=== PATIENT | female | born 1945 | race Caucasian/White ===

== ENCOUNTER 2017-11-26 12:50 | Inpatient (IN) | payer MEDICARE ==
[~2017-11-26] VITALS: Ht 160 cm; Wt 40.3 kg
[2017-11-26] VITALS (13 sets, daily range): BP systolic 98–129; BP diastolic 54–73; PULSE 86–132; RESP 15–20; TEMP 98–98.1; O2SAT 90–99
[~2017-11-26 12:50] MED LIST: CARD120T4 PO; HYDR-3533 PO; IPRAAER IN; LISI2.5T3 PO; METO25 PO; PLAV75TA PO; ZITH250T PO; ZOFR4TAB3 SL
[2017-11-26] MEDS ORDERED: SODIUM CHLORID 0.9% 500 ML INJ 500 ML IV ONE (13:30)
[2017-11-26] MEDS ORDERED: DILTIAZEM HCL 25 MG/5 ML VIAL IV ONE (13:30)
[2017-11-26] MEDS ORDERED: RESP: ALBUTEROL 2.5 MG/IPRATROPIUM 0.5 MG NEB (SCH) INH ONE (13:30)
--- NOTE | 2017-11-26 13:40 | PD ---
HPI Chief Complaint: Abnormal Results Time Seen by Provider: 13:15 Travel History International Travel<30 days: No Contact w/Intl Traveler<30days: No Traveled to known affect area: No History of Present Illness HPI Patient is a 72-year-old female presenting to the emergency department due to abnormal labs. Patient's INR is 18 per her report. Additionally she was going to her doctor's this morning because she has been having cold symptoms for the last 2 weeks, her symptoms have progressively gotten worse. Patient states that she feel short of breath, she has a nonproductive cough. She states that her ribs are sore from coughing. Daughter is at bedside states that she had a fever initially, fevers appear subjective in nature. Patient has had decreased appetite, she denies any nausea, vomiting, abdominal pain, chest pain. He has a history of COPD and has been using Advair but does not used nebulizer treatments. Patient denies any nasal congestion, postnasal drip, headaches. Symptom onset was gradual, symptom severity is moderate, there are no alleviating factors. Patient reports that she is on Coumadin due to a valve replacement and atrial fibrillation. PFSH Past Medical History Hx Anticoagulant Therapy: Yes (Coumadin) Atrial Fibrillation: Yes COPD: Yes Diminished Hearing: No Hypertension: Yes Respiratory: Yes (COPD) Past Surgical History Cardiac Surgery: Yes (mitral and aortic valve replacement (mechanical)) Tonsillectomy: Yes Social History Alcohol Use: No Tobacco Use: Yes (1/2 PPD) Substance Use: No Allergies-Medications (Allergen,Severity, Reaction): Coded Allergies: No Known Allergies (Verified Adverse Reaction, Unknown, 11/26/17) Reported Meds & Prescriptions Reported Meds & Active Scripts Active Reported Ferosul (Ferrous Sulfate) 325 Mg (65 Mg Iron) Tablet 0.5 Tab PO DAILY [place] (Hydrocodone-Acetaminophen) 5 Mg-325 Mg Tab 1 Tab PO Q4H PRN Diltiazem (Diltiazem HCl) 120 Mg Tab 120 Mg PO DAILY Coumadin (Warfarin) 5 Mg Tab 7.5 Mg PO DAILY Potassium Chloride ER (Potassium Chloride) 20 Meq Tab 20 Meq PO DAILY While on Torsemide Metoprolol Succinate ER 24 HR (Metoprolol Succinate) 25 Mg Tab 25 Mg PO DAILY Torsemide 20 Mg Tab 10 Mg PO DAILY Lipitor (Atorvastatin Calcium) 20 Mg Tab 20 Mg PO HS Advair Diskus Inh (Fluticasone-Salmeterol Inh) 250-50 Mcg/Blist Aer 1 Puff INH BID Rinse mouth after use. Review of Systems Except as stated in HPI: all other systems reviewed are Neg General / Constitutional: Positive: Weight Loss, No: Fever, Chills HENT: No: Headaches Cardiovascular: No: Chest Pain or Discomfort Respiratory: Positive: Cough, Shortness of Breath, Wheezing, Orthopnea, Pleuritic Pain Gastrointestinal: No: Nausea, Abdominal Pain Musculoskeletal: No: Myalgias Neurologic: No: Weakness, Dizziness, Focal Abnormalities Physical Exam Narrative GENERAL: Cachectic, well-developed, alert elderly female. SKIN: Warm and dry. HEAD: Atraumatic. Normocephalic. EYES: Pupils equal and round. No scleral icterus. No injection or drainage. ENT: No nasal bleeding or discharge. Mucous membranes pink and moist. NECK: Trachea midline. No JVD. CARDIOVASCULAR: Irregularly irregular, tachycardic, 2/6 systolic murmur RESPIRATORY: Pursed lip breathing, tachypneic, diminished in bases, expiratory wheezes noted. GASTROINTESTINAL: Abdomen soft, non-tender, nondistended. Hepatic and splenic margins not palpable. MUSCULOSKELETAL: Extremities without clubbing, cyanosis, or edema. No obvious deformities. NEUROLOGICAL: Awake and alert. No obvious cranial nerve deficits. Motor grossly within normal limits. Five out of 5 muscle strength in the arms and legs. Normal speech. PSYCHIATRIC: Appropriate mood and affect; insight and judgment normal. Data Data Last Documented VS Vital Signs Date Time Temp Pulse Resp B/P (MAP) Pulse Ox O2 Delivery O2 Flow Rate FiO2 11/26/17 15:14 110 15 103/60 (74) 96 Nasal Cannula 2.00 11/26/17 13:00 98.0 Orders Orders Complete Blood Count With Diff (11/26/17 13:21) Comprehensive Metabolic Panel (11/26/17 13:21) Act Partial Throm Time (Ptt) (11/26/17 13:21) Prothrombin Time / Inr (Pt) (11/26/17 13:21) Magnesium (Mg) (11/26/17 13:21) Urinalysis - C+S If Indicated (11/26/17 13:21) Influenzae A/B Antigen (11/26/17 13:21) Iv Access Insert/Monitor (11/26/17 13:21) Ecg Monitoring (11/26/17 13:21) Oximetry (11/26/17 13:21) Oxygen Administration (11/26/17 13:21) Chest, Single Ap (11/26/17 13:21) Sodium Chloride 0.9% Flush (Ns Flush) (11/26/17 13:30) Albuterol-Ipratropium Neb (Duoneb Neb) (11/26/17 13:30) Diltiazem Inj (Cardizem Inj) (11/26/17 13:30) Type And Screen (11/26/17 13:22) Sodium Chlorid 0.9% 500 Ml Inj (Ns 500 M (11/26/17 13:30) Electrocardiogram (11/26/17 13:14) Azithromycin Inj (Zithromax Inj) (11/26/17 15:00) Methylprednisolone So Succ Inj (Solumedr (11/26/17 15:00) Vital Signs (Adult) Q15MX4,Q4H (11/26/17 15:26) Reinforcing Steel Placer / Telemetry YUDI.Q8H (11/26/17 15:26) Cardiac Rhythm YUDI.Q8H (11/26/17 15:26) Notify Dr: Other (11/26/17 15:26) Diltiazem Inj (Cardizem Inj) (11/26/17 15:30) Admit Order (Ed Use Only) (11/26/17 15:26) Labs Laboratory Tests Test 11/26/17 13:30 White Blood Count 7.2 TH/MM3 Red Blood Count 4.45 MIL/MM3 Hemoglobin 13.2 GM/DL Hematocrit 39.9 % Mean Corpuscular Volume 89.7 FL Mean Corpuscular Hemoglobin 29.6 PG Mean Corpuscular Hemoglobin Concent 32.9 % Red Cell Distribution Width 14.6 % Platelet Count 316 TH/MM3 Mean Platelet Volume 7.8 FL Neutrophils (%) (Auto) 80.9 % Lymphocytes (%) (Auto) 10.3 % Monocytes (%) (Auto) 8.4 % Eosinophils (%) (Auto) 0.1 % Basophils (%) (Auto) 0.3 % Neutrophils # (Auto) 5.8 TH/MM3 Lymphocytes # (Auto) 0.7 TH/MM3 Monocytes # (Auto) 0.6 TH/MM3 Eosinophils # (Auto) 0.0 TH/MM3 Basophils # (Auto) 0.0 TH/MM3 CBC Comment DIFF FINAL Differential Comment Prothrombin Time 139.9 SEC Prothromb Time International Ratio 14.1 RATIO Activated Partial Thromboplast Time 92.7 SEC Blood Urea Nitrogen 18 MG/DL Creatinine 0.55 MG/DL Random Glucose 91 MG/DL Total Protein 7.2 GM/DL Albumin 2.8 GM/DL Calcium Level 9.4 MG/DL Magnesium Level 2.0 MG/DL Alkaline Phosphatase 74 U/L Aspartate Amino Transf (AST/SGOT) 38 U/L Alanine Aminotransferase (ALT/SGPT) 26 U/L Total Bilirubin 0.8 MG/DL Sodium Level 138 MEQ/L Potassium Level 4.7 MEQ/L Chloride Level 95 MEQ/L Carbon Dioxide Level 40.7 MEQ/L Anion Gap 2 MEQ/L Estimat Glomerular Filtration Rate 109 ML/MIN MDM Medical Decision Making Medical Screen Exam Complete: Yes Emergency Medical Condition: Yes Medical Record Reviewed: Yes Interpretation(s) Vital Signs Date Time Temp Pulse Resp B/P (MAP) Pulse Ox O2 Delivery O2 Flow Rate FiO2 11/26/17 15:14 110 15 103/60 (74) 96 Nasal Cannula 2.00 11/26/17 13:54 93 2.00 11/26/17 13:54 97 20 129/62 (84) 95 Nasal Cannula 2.00 11/26/17 13:13 20 100 Nasal Cannula 2.00 11/26/17 13:09 132 16 129/62 (84) 98 11/26/17 13:00 98.0 118 16 98/68 (78) 90 Room Air Last Impressions Chest X-Ray 11/26/17 1321 Signed Impressions: Service Date/Time: Sunday, November 26, 2017 13:38 - CONCLUSION: Minimal parenchymal changes left base without significant failure. Joni Hough MD FACR Laboratory Tests Test 11/26/17 13:30 White Blood Count 7.2 TH/MM3 Red Blood Count 4.45 MIL/MM3 Hemoglobin 13.2 GM/DL Hematocrit 39.9 % Mean Corpuscular Volume 89.7 FL Mean Corpuscular Hemoglobin 29.6 PG Mean Corpuscular Hemoglobin Concent 32.9 % Red Cell Distribution Width 14.6 % Platelet Count 316 TH/MM3 Mean Platelet Volume 7.8 FL Neutrophils (%) (Auto) 80.9 % Lymphocytes (%) (Auto) 10.3 % Monocytes (%) (Auto) 8.4 % Eosinophils (%) (Auto) 0.1 % Basophils (%) (Auto) 0.3 % Neutrophils # (Auto) 5.8 TH/MM3 Lymphocytes # (Auto) 0.7 TH/MM3 Monocytes # (Auto) 0.6 TH/MM3 Eosinophils # (Auto) 0.0 TH/MM3 Basophils # (Auto) 0.0 TH/MM3 CBC Comment DIFF FINAL Differential Comment Prothrombin Time 139.9 SEC Prothromb Time International Ratio 14.1 RATIO Activated Partial Thromboplast Time 92.7 SEC Blood Urea Nitrogen 18 MG/DL Creatinine 0.55 MG/DL Random Glucose 91 MG/DL Total Protein 7.2 GM/DL Albumin 2.8 GM/DL Calcium Level 9.4 MG/DL Magnesium Level 2.0 MG/DL Alkaline Phosphatase 74 U/L Aspartate Amino Transf (AST/SGOT) 38 U/L Alanine Aminotransferase (ALT/SGPT) 26 U/L Total Bilirubin 0.8 MG/DL Sodium Level 138 MEQ/L Potassium Level 4.7 MEQ/L Chloride Level 95 MEQ/L Carbon Dioxide Level 40.7 MEQ/L Anion Gap 2 MEQ/L Estimat Glomerular Filtration Rate 109 ML/MIN Vital Signs Date Time Temp Pulse Resp B/P (MAP) Pulse Ox O2 Delivery O2 Flow Rate FiO2 11/26/17 13:13 20 100 Nasal Cannula 2.00 11/26/17 13:09 132 16 129/62 (84) 98 11/26/17 13:00 98.0 118 16 98/68 (78) 90 Room Air Differential Diagnosis COPD exacerbation versus metabolic abnormality versus pneumonia versus coagulopathy versus cardiac arrhythmia Narrative Course Patient is a 72-year-old female presenting for abnormal labs as well as increasing shortness of breath for the last 2 weeks. Patient is tachycardic and tachypneic on arrival. Initial EKG shows atrial fibrillation with rapid ventricular response. Patient was given 10 mg IV Cardizem 1 dose. Labs and imaging ordered and pending. Chest x-ray shows minimal parenchymal changes in the left base without significant failure, cardiomegaly. CBC is unremarkable, chemistry with elevated carbon dioxide of 40.7. Coags with INR of 14.1, APTT 32.7. Discussed findings with my attending physician, will not correct supratherapeutic INR at this time. There is no evidence of bleeding, patient's hemoglobin is stable. [facility] paged for admission. Azithromycin and Solu-Medrol ordered. Dr. Haddad accepted admission, he requested patient be placed on Cardizem drip. Orders placed. Diagnosis Primary Impression: COPD exacerbation Additional Impressions: Supratherapeutic INR Pneumonia Qualified Codes: J18.1 - Lobar pneumonia, unspecified organism Atrial fibrillation with rapid ventricular response Admitting Information Admitting Physician Requests: Admit Condition: Stable Marsha Cisneros Nov 26, 2017 13:40
--- NOTE | 2017-11-26 13:51 | RADRPT ---
EXAM DATE/TIME: 11/26/2017 13:38 [place] COMPARISON: No previous studies available for comparison. INDICATIONS : Shortness of breath, cough, and lightheaded. MEDICAL HISTORY : Chronic obstructive pulmonary disease. SURGICAL HISTORY : Mitral valve replacement. Aortic valve replacement. ENCOUNTER: Initial ACUITY: 2 days PAIN SCORE: 0/10 LOCATION: Bilateral chest FINDINGS: Sternal wires from previous cardiac surgery and valve placement are evident. Minimal bibasilar paren chymal changes are evident worse on the right. The heart is minimally enlarged. There is no signifi cant failure.. CONCLUSION: Minimal parenchymal changes left base without significant failure. Joni Hough MD FACR on November 26, 2017 at 13:49 Board Certified Radiologist. This report was verified electronically.
[2017-11-26 14:01] LABS: AUTOMATED NEUTROPHIL # 5.8 TH/MM3 (1.8-7.7); BASOPHIL % 0.3 % (0.0-2.0); EOSINOPHIL % 0.1 % (0.0-4.0); HEMATOCRIT 39.9 % (35.0-46.0); HEMOGLOBIN 13.2 GM/DL (11.6-15.3); LYMPH % 10.3 % (9.0-44.0); LYMPHOCYTE # 0.7 TH/MM3 (1.0-4.8); MEAN CELL VOLUME 89.7 FL (80.0-100.0); MEAN CORPUSCULAR HEMOGLOBIN 29.6 PG (27.0-34.0); MEAN CORPUSCULAR HGB CONC 32.9 % (32.0-36.0); MEAN PLATELET VOLUME 7.8 FL (7.0-11.0); MONO % 8.4 % (0.0-8.0); MONOCYTE # 0.6 TH/MM3 (0-0.9); NEUT % 80.9 % (16.0-70.0); PLATELET COUNT 316 TH/MM3 (150-450); RED BLOOD COUNT 4.45 MIL/MM3 (4.00-5.30); RED CELL DISTRIBUTION WIDTH 14.6 % (11.6-17.2); WHITE BLOOD COUNT 7.2 TH/MM3 (4.0-11.0)
[2017-11-26 14:16] LABS: ALKALINE PHOSPHATASE 74 U/L (45-117); TOTAL BILIRUBIN ADULT 0.8 MG/DL (0.2-1.0); TOTAL PROTEIN 7.2 GM/DL (6.4-8.2)
[2017-11-26 14:19] LABS: ALBUMIN 2.8 GM/DL (3.4-5.0); ALT (GPT) 26 U/L (10-53); AST (GOT) 38 U/L (15-37); BICARBONATE 40.7 MEQ/L (21.0-32.0); BLOOD UREA NITROGEN 18 MG/DL (7-18); CALCIUM 9.4 MG/DL (8.5-10.1); CHLORIDE 95 MEQ/L (98-107); CREATININE 0.55 MG/DL (0.50-1.00); GLOMERULAR FILTRATION RATE 109 ML/MIN (>89); GLUCOSE,RANDOM 91 MG/DL (74-106); SODIUM (NA) 138 MEQ/L (136-145)
[2017-11-26 14:31] LABS: PROTHROMBIN TIME - PATIENT 139.9 SEC (9.8-11.6)
[2017-11-26] MEDS ORDERED: NORC5TAB PO (14:34)
[2017-11-26] MEDS ORDERED: ADVA250A INH (14:34)
[2017-11-26] MEDS ORDERED: COUM5TAB PO (14:34)
[2017-11-26] MEDS ORDERED: LIPI20TA PO (14:34)
[2017-11-26] MEDS ORDERED: [UNRECOGNIZED DRUG - CODE] PO (14:34)
[2017-11-26] MEDS ORDERED: METO1TAB42 PO (14:34)
[2017-11-26] MEDS ORDERED: POTA-163 PO (14:34)
[2017-11-26] MEDS ORDERED: DILT120T PO (14:34)
[2017-11-26] MEDS ORDERED: TORS20TA PO (14:34)
[2017-11-26 14:35] LABS: INTERNATIONAL NORMALIZED RATIO 14.1 RATIO
[2017-11-26] MEDS ORDERED: FERR325T20 PO (14:35)
[2017-11-26] MEDS ORDERED: AZITHROMYCIN INJ 500 MG in SODIUM CHLOR 0.9% 250 ML INJ 250 ML IV ONE (15:00)
[2017-11-26] MEDS ORDERED: methylPREDNISolone SOD SUCC 125 MG/2 ML VIAL IV PUSH ONE (15:00)
[2017-11-26] MEDS: SODIUM CHLORIDE 0.9% FLUSH 10 ML FLUSH IVF PRN (15:10)
[2017-11-26] MEDS: DILTIAZEM INJ 125 MG in SODIUM CHLORIDE 0.9% INJ 100 ML IV PRN (16:01)
[2017-11-26] MEDS ORDERED: MAGNESIUM HYDROXIDE SUSP 30 ML CUP PO PRN (16:45)
[2017-11-26] MEDS ORDERED: ONDANSETRON HCL 4 MG/2 ML VIAL IVP PRN (16:45)
[2017-11-26] MEDS ORDERED: MORPHINE SULFATE 4 MG/ML INJ IV PUSH PRN (16:45)
[2017-11-26] MEDS ORDERED: ACETAMINOPHEN/HYDROcodone 325 MG/7.5 MG TAB PO PRN (16:45)
[2017-11-26] MEDS ORDERED: ACETAMINOPHEN/HYDROcodone 325 MG/5 MG TAB PO PRN (16:45)
[2017-11-26] MEDS ORDERED: NALOXONE HCL 0.4 MG/ML AMP IV PUSH PRN (16:45)
[2017-11-26] MEDS ORDERED: ACETAMINOPHEN 325 MG TAB PO PRN (16:45)
[2017-11-26] MEDS: cefTRIAXone INJ 1,000 MG in SODIUM CHLORIDE 0.9% INJ 100 ML IV SCH (17:54)
--- NOTE | 2017-11-26 18:29 | HHI.HP ---
[facility] Joni Pereyra, DO Admission Diagnosis afib w/ rvr, supratherapeutic INR, pna Diagnoses: Chief Complaint: My INR is high Travel History International Travel<30 Days: No Contact w/Intl Traveler <30 Da: No Traveled to Known Affected Are: No History of Present Illness 72 years old female with history of mild valvular prosthesis she is on Coumadin , she got a call from her cardiology office to go to ER due to high INR 18. in ED she also complaining of intense cough for a few days ago along with phlegm which is dark brown, short of breath, no fever no chest pain or discomfort, no palpitation or diarrhea, no previous antibiotic, patient smokes 5 cigarettes a day she does not do alcohol. She is not on oxygen at home. Also in ED she was found to have A. fib which seems to be new for her Review of Systems All systems reviewed and was positive for what is mentioned in history of present illness otherwise negative Past Family Social History Past Medical History No history of heart disease, aortic and mitral valve replacement, hyperlipidemia Past Surgical History History of mitral and aortic valve replacement, Allergies: Coded Allergies: No Known Allergies (Verified Allergy, Unknown, 11/26/17) Family History Father had dementia, brother had coronary artery disease with stenting Social History She smoked 5 cigarettes a day no alcohol or illicit drug abuse Physical Exam Vital Signs Vital Signs Date Time Temp Pulse Resp B/P (MAP) Pulse Ox O2 Delivery O2 Flow Rate FiO2 11/26/17 17:37 96 16 101/62 (75) 96 Nasal Cannula 2.00 11/26/17 16:45 86 105/64 (78) 11/26/17 16:01 107 105/58 11/26/17 15:14 110 15 103/60 (74) 96 Nasal Cannula 2.00 11/26/17 13:54 93 2.00 11/26/17 13:54 97 20 129/62 (84) 95 Nasal Cannula 2.00 11/26/17 13:13 20 100 Nasal Cannula 2.00 11/26/17 13:09 132 16 129/62 (84) 98 11/26/17 13:00 98.0 118 16 98/68 (78) 90 Room Air Physical Exam GENERAL: Frail 59 years old female who looks cachectic in no apparent distress. SKIN: No rashes, warm and dry HEAD: Atraumatic. Normocephalic. EYES: Pupils equal round and reactive. Extraocular motions intact. No scleral icterus. ENT: Nose without bleeding, or drainage, Airway patent. NECK: Trachea midline. Supple CARDIOVASCULAR: R irregularly irregular without murmurs, gallops, or rubs. RESPIRATORY: Left basilar crackles GASTROINTESTINAL: Abdomen soft, non-tender, nondistended. Positive bowel sounds MUSCULOSKELETAL: Extremities without clubbing, cyanosis, or edema. Pedal pulses appreciated NEUROLOGICAL: Awake and alert. Moves all extremity. Normal speech.no focal neurological deficit Laboratory Laboratory Tests Test 11/26/17 13:30 White Blood Count 7.2 Red Blood Count 4.45 Hemoglobin 13.2 Hematocrit 39.9 Mean Corpuscular Volume 89.7 Mean Corpuscular Hemoglobin 29.6 Mean Corpuscular Hemoglobin Concent 32.9 Red Cell Distribution Width 14.6 Platelet Count 316 Mean Platelet Volume 7.8 Neutrophils (%) (Auto) 80.9 Lymphocytes (%) (Auto) 10.3 Monocytes (%) (Auto) 8.4 Eosinophils (%) (Auto) 0.1 Basophils (%) (Auto) 0.3 Neutrophils # (Auto) 5.8 Lymphocytes # (Auto) 0.7 Monocytes # (Auto) 0.6 Eosinophils # (Auto) 0.0 Basophils # (Auto) 0.0 CBC Comment DIFF FINAL Differential Comment Prothrombin Time 139.9 Prothromb Time International Ratio 14.1 Activated Partial Thromboplast Time 92.7 Blood Urea Nitrogen 18 Creatinine 0.55 Random Glucose 91 Total Protein 7.2 Albumin 2.8 Calcium Level 9.4 Magnesium Level 2.0 Alkaline Phosphatase 74 Aspartate Amino Transf (AST/SGOT) 38 Alanine Aminotransferase (ALT/SGPT) 26 Total Bilirubin 0.8 Sodium Level 138 Potassium Level 4.7 Chloride Level 95 Carbon Dioxide Level 40.7 Anion Gap 2 Estimat Glomerular Filtration Rate 109 Date/Time Source Procedure Growth Status 11/26/17 13:30 Nasal Washing Influenza Types A,B Antigen (KVNG) - Final NEGATIVE FOR FLU A AND B ANTIGEN.... Complete Result Diagram: 11/26/17 1330 11/26/17 1330 Imaging Last Impressions Chest X-Ray 11/26/17 1321 Signed Impressions: Service Date/Time: Sunday, November 26, 2017 13:38 - CONCLUSION: Minimal parenchymal changes left base without significant failure. Joni Hough MD FACR [place]an VTE Risk Assessment Caprini VTE Risk Assessment: Mod/High Risk (score >= 2) Caprini Risk Assessment Model Point Value = 1 Point Value = 2 Point Value = 3 Point Value = 5 Age 41-60 Minor surgery BMI > 25 kg/m2 Swollen legs Varicose veins or History of unexplained or recurrent spontaneous Oral contraceptives or hormone replacement Sepsis (< 1 month) Serious lung disease, including pneumonia (< 1 month) Abnormal pulmonary function Acute myocardial infarction Congestive heart failure (< 1 month) History of inflammatory bowel disease Medical patient at bed rest Age 61-74 Arthroscopic surgery Major open surgery (> 45 min) Laparoscopic surgery (> 45 min) Malignancy Confined to bed (> 72 hours) Immobilizing plaster cast Central venous access Age >= 75 History of VTE Family history of VTE Factor V Leiden Prothrombin [id number] Lupus anticoagulant Anticardiolipin antibodies Elevated serum homocysteine Heparin-induced thrombocytopenia Other congenital or acquired thrombophilia Stroke (< 1 month) Elective arthroplasty Hip, pelvis, or leg fracture Acute spinal cord injury (< 1 month) Prophylaxis Regimen Total Risk Factor Score Risk Level Prophylaxis Regimen 0-1 Low Early ambulation 2 Moderate Order ONE of the following: *Sequential Compression Device (SCD) *Heparin 5000 units SQ BID 3-4 Higher Order ONE of the following medications: *Heparin 5000 units SQ TID *Enoxaparin/Lovenox 40 mg SQ daily (WT < 150 kg, CrCl > 30 mL/min) *Enoxaparin/Lovenox 30 mg SQ daily (WT < 150 kg, CrCl > 10-29 mL/min) *Enoxaparin/Lovenox 30 mg SQ BID (WT < 150 kg, CrCl > 30 mL/min) AND/OR *Sequential Compression Device (SCD) 5 or more Highest Order ONE of the following medications: *Heparin 5000 units SQ TID (Preferred with Epidurals) *Enoxaparin/Lovenox 40 mg SQ daily (WT < 150 kg, CrCl > 30 mL/min) *Enoxaparin/Lovenox 30 mg SQ daily (WT < 150 kg, CrCl > 10-29 mL/min) *Enoxaparin/Lovenox 30 mg SQ BID (WT < 150 kg, CrCl > 30 mL/min) AND *Sequential Compression Device (SCD) Assessment and Plan Assessment and Plan 72 years old female admitted with Severe Coumadin toxicity with INR of 18 Acute left lower lobe CAP, with hypoxia, cough phlegm production and increased neutrophil New onset A. 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 and monitor closely for any signs of bleeding Rocephin and Zithromax for pneumonia 02, DuoNeb Cardizem drip per protocol 2D echo, consult cardiology Healthy heart diet Bedrest with bathroom privileges for now, fall precaution Discussed Condition With Patient and her best friend Physician Certification 2 Midnight Certification Type: Admission for Inpatient Services Order for Inpatient Services The services are ordered in accordance with Medicare regulations or non- Medicare payer requirements, as applicable. In the case of services not specified as inpatient-only, they are appropriately provided as inpatient services in accordance with the 2-midnight benchmark. Estimated LOS (days): 3 days is the estimated time the patient will need to remain in the hospital, assuming treatment plan goals are met and no additional complications. Post-Hospital Plan: Not yet determined Letha Haddad MD Nov 26, 2017 18:29
[2017-11-26 21:39] LABS: BILIRUBIN, URINE NEG (NEG); BLOOD, URINE NEG (NEG); GLUCOSE,URINE NEG (NEG); HYALINE CAST, URINE 3 /lpf (RARE); KETONE, URINE 10 mg/dL (NEG); NITRITE,URINE POS (NEG); SQUAMOUS EPITHELIAL CELL URINE <1 /hpf (0-5); URINE COLOR YELLOW (YELLW/STRAW); URINE LEUKOCYTE ESTERASE SMALL (NEG)
[2017-11-26] MEDS: DOCUSATE SODIUM 50 MG/SENNA 8.6 MG TAB PO SCH (22:50)
[2017-11-27] VITALS (31 sets, daily range): BP systolic 101–110; BP diastolic 55–70; PULSE 82–116; RESP 18–20; TEMP 97.3–98; O2SAT 93–100
[2017-11-27 04:56] LABS: AUTOMATED NEUTROPHIL # 3.7 TH/MM3 (1.8-7.7); BASOPHIL % 0.1 % (0.0-2.0); HEMATOCRIT 36.7 % (35.0-46.0); HEMOGLOBIN 12.2 GM/DL (11.6-15.3); LYMPH % 8.4 % (9.0-44.0); LYMPHOCYTE # 0.3 TH/MM3 (1.0-4.8); MEAN CORPUSCULAR HEMOGLOBIN 29.8 PG (27.0-34.0); MEAN CORPUSCULAR HGB CONC 33.2 % (32.0-36.0); MEAN PLATELET VOLUME 7.6 FL (7.0-11.0); MONO % 1.9 % (0.0-8.0); MONOCYTE # 0.1 TH/MM3 (0-0.9); NEUT % 89.6 % (16.0-70.0); PLATELET COUNT 278 TH/MM3 (150-450); RED BLOOD COUNT 4.08 MIL/MM3 (4.00-5.30); RED CELL DISTRIBUTION WIDTH 14.5 % (11.6-17.2); WHITE BLOOD COUNT 4.1 TH/MM3 (4.0-11.0)
[2017-11-27 05:13] LABS: PROTHROMBIN TIME - PATIENT 95.1 SEC (9.8-11.6)
[2017-11-27 05:21] LABS: CALCIUM 8.8 MG/DL (8.5-10.1); CREATININE 0.5 MG/DL (0.50-1.00)
[2017-11-27 05:31] LABS: INTERNATIONAL NORMALIZED RATIO 9.5 RATIO
[2017-11-27] MEDS: DOCUSATE SODIUM 50 MG/SENNA 8.6 MG TAB PO SCH ×2 (09:00→21:00)
[2017-11-27] MEDS: DILTIAZEM INJ 125 MG in SODIUM CHLORIDE 0.9% INJ 100 ML IV PRN (12:31)
[2017-11-27] MEDS ORDERED: RESP: ALBUTEROL 2.5 MG/IPRATROPIUM 0.5 MG NEB (PRN) NEB (13:00)
[2017-11-27] MEDS ORDERED: GLUCAGON 1 MG/ML VIAL OTHER PRN (13:00)
[2017-11-27] MEDS ORDERED: DEXTROSE 50% IN WATER 50 ML VIAL(D50) IV PUSH PRN (13:00)
[2017-11-27] MEDS: DILTIAZEM HCL 30 MG TAB PO SCH ×3 (13:33→23:32)
--- NOTE | 2017-11-27 14:51 | EKG ---
Date Performed: 11/26/2017 Time Performed: 13:14:22 PTAGE: 72 years EKG: ATRIAL FIBRILLATION WITH RAPID VENTRICULAR RESPONSE WITH ABERRANT CONDUCTION OR VENTRICULAR PREMATURE COMPLEXES MODERATE VOLTAGE CRITERIA FOR LVH, CONSIDER NORMAL VARIANT ST DEVIATION AND MODE RATE T-WAVE ABNORMALITY, CONSIDER ANTERIOR ISCHEMIA ABNORMAL ECG Since PREVIOUS TRACING , no significant change noted PREVIOUS TRACIN08/12/2001 04.07.07 DOCTOR: Xander Cook Interpretating Date/Time 11/27/2017 14:49:26
[2017-11-27] MEDS: AZITHROMYCIN INJ 500 MG in SODIUM CHLOR 0.9% 250 ML INJ 250 ML IV SCH (15:51)
[2017-11-27] MEDS: RESP: ALBUTEROL 2.5 MG/IPRATROPIUM 0.5 MG NEB (SCH) NEB ×2 (16:02→21:16)
--- NOTE | 2017-11-27 16:54 | HHI.PR ---
Subjective Remarks Looks tired on nasal cannula O2, but stable no accessory muscle use, no fever or chills overnight Objective Vitals Vital Signs Date Time Temp Pulse Resp B/P (MAP) Pulse Ox O2 Delivery O2 Flow Rate FiO2 11/27/17 16:00 102 11/27/17 15:38 97.7 97 18 104/58 (73) 97 11/27/17 15:00 97 11/27/17 14:04 105 11/27/17 13:00 108 11/27/17 12:31 102 110/67 11/27/17 12:01 93 11/27/17 11:01 94 11/27/17 11:00 97.3 96 18 110/67 (81) 100 11/27/17 10:00 100 11/27/17 09:15 97.6 94 18 108/60 (76) 98 11/27/17 09:00 106 11/27/17 08:20 93 Nasal Cannula 2.00 11/27/17 08:00 90 11/27/17 07:01 91 11/27/17 06:09 97 11/27/17 05:39 82 11/27/17 04:07 82 11/27/17 03:10 97.8 101 18 103/55 (71) 98 11/27/17 03:10 92 11/27/17 02:02 96 11/27/17 01:18 106 11/27/17 00:18 96 11/26/17 23:33 98.0 109 16 101/61 (74) 99 11/26/17 23:00 94 11/26/17 22:30 94 11/26/17 22:19 98.1 96 17 98/54 (69) 96 11/26/17 21:51 11/26/17 21:51 108 18 114/70 (85) 96 Nasal Cannula 2.00 11/26/17 21:29 120 18 114/73 (87) 98 Nasal Cannula 2.00 11/26/17 19:45 103 18 108/61 (77) 97 Nasal Cannula 2.00 11/26/17 17:37 96 16 101/62 (75) 96 Nasal Cannula 2.00 I/O 11/26/17 11/26/17 11/26/17 11/27/17 11/27/17 11/27/17 07:00 15:00 23:00 07:00 15:00 23:00 Intake Total 850 ml 480 ml Output Total 300 ml Balance 850 ml 180 ml Intake Oral 480 ml IV Total 850 ml Output Urine Total 300 ml Result Diagram: 11/27/17 0410 11/27/17 041 A/P Assessment and Plan 11/27: Stable change Cardizem to be oh continue monitoring her breathing better, continue on IV antibiotics, tomorrow follow-up A/P: 72 years old female admitted with Severe Coumadin toxicity with INR of 18 Acute left lower lobe CAP, with hypoxia, cough phlegm production and increased neutrophil New onset A. 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 and monitor closely for any signs of bleeding Rocephin and Zithromax for pneumonia , oNeb Cardizem drip per protocol 2D echo, consult cardiology Healthy heart diet Bedrest with bathroom privileges for now, fall precaution Letha Haddad MD Nov 27, 2017 16:54
[2017-11-27] MEDS: cefTRIAXone INJ 1,000 MG in SODIUM CHLORIDE 0.9% INJ 100 ML IV SCH (17:08)
[2017-11-27] MEDS: INSULIN ASPART SUPPLEMENTAL SCALE SQ SCH ×2 (17:11→20:52)
[2017-11-28] VITALS (28 sets, daily range): BP systolic 100–123; BP diastolic 54–76; PULSE 94–120; RESP 16–20; TEMP 97.1–98.8; O2SAT 92–98
[2017-11-28] MEDS: DILTIAZEM HCL 30 MG TAB PO SCH ×4 (05:07→23:42)
[2017-11-28 07:43] LABS: AUTOMATED NEUTROPHIL # 4.7 TH/MM3 (1.8-7.7); HEMATOCRIT 36.1 % (35.0-46.0); HEMOGLOBIN 11.9 GM/DL (11.6-15.3); LYMPH % 13.2 % (9.0-44.0); LYMPHOCYTE # 0.8 TH/MM3 (1.0-4.8); MEAN CELL VOLUME 91.5 FL (80.0-100.0); MEAN CORPUSCULAR HEMOGLOBIN 30.2 PG (27.0-34.0); MONO % 10.3 % (0.0-8.0); MONOCYTE # 0.6 TH/MM3 (0-0.9); NEUT % 76.5 % (16.0-70.0); PLATELET COUNT 289 TH/MM3 (150-450); RED BLOOD COUNT 3.94 MIL/MM3 (4.00-5.30); RED CELL DISTRIBUTION WIDTH 14.8 % (11.6-17.2); WHITE BLOOD COUNT 6.2 TH/MM3 (4.0-11.0)
[2017-11-28] MEDS: INSULIN ASPART SUPPLEMENTAL SCALE SQ SCH ×4 (07:54→21:00)
[2017-11-28 08:00] LABS: CALCIUM 8.9 MG/DL (8.5-10.1); CREATININE 0.43 MG/DL (0.50-1.00)
[2017-11-28] MEDS: DOCUSATE SODIUM 50 MG/SENNA 8.6 MG TAB PO SCH ×2 (08:35→21:00)
[2017-11-28] MEDS: RESP: ALBUTEROL 2.5 MG/IPRATROPIUM 0.5 MG NEB (SCH) NEB ×4 (10:10→20:59)
[2017-11-28] MEDS: AZITHROMYCIN INJ 500 MG in SODIUM CHLOR 0.9% 250 ML INJ 250 ML IV SCH (16:00)
[2017-11-28] MEDS: cefTRIAXone INJ 1,000 MG in SODIUM CHLORIDE 0.9% INJ 100 ML IV SCH (17:34)
--- NOTE | 2017-11-28 19:26 | MB ---
cc: YOLI OSUNA MD DATE OF CONSULTATION: 11/28/2017. HISTORY OF PRESENT ILLNESS: Mrs. Ashford is a 72-year-old white female with a history of mitral and aortic valve replacement using mechanical valves. Her support associate is in [place]. The patient is on Coumadin and was found to have INR of 18. She recently has had an upper respiratory infection with a cough and dark-brown sputum and shortness of breath. She has not had any chest pain. She continues to smoke. She was found to be in atrial fibrillation in the emergency room. PAST MEDICAL HISTORY: 1. Positive for mitral and aortic valve replacement using mechanical valves. 2. History of dyslipidemia. 3. Hypertension. 4. COPD. MEDICATIONS: 1. Iron. 2. Warfarin 5 milligrams a day. 3. Atorvastatin. 4. Metoprolol. 5. Diltiazem. 6. [place]. 7. Potassium. 8. Torsemide. 9. Advair Diskus. ALLERGIES: NONE. SOCIAL HISTORY: The patient continues to smoke. She does not drink alcohol. FAMILY HISTORY: Positive for heart disease in her brother. REVIEW OF SYSTEMS: The review of systems is otherwise negative. PHYSICAL EXAMINATION: VITAL SIGNS: Blood pressure 106/67, pulse 116 and irregular. HEAD, EYES, EARS, NOSE, THROAT: Negative. NECK: 2+ carotid upstrokes, no bruits. LUNGS: With a few rhonchi and crackles at the left base. HEART: Irregular with no murmurs, rubs or gallops. ABDOMEN: Abdomen soft. No bruits. EXTREMITIES: Without edema. 1 to 2+ distal pulses. NEUROLOGIC: Grossly nonfocal. EKGS: EKG was reviewed and showed atrial fibrillation with rapid ventricular response and nonspecific S-T-T changes. LABORATORY DATA: Hemoglobin of 11.9. Potassium 4.3, creatinine 0.4, AST 38, ALT 26, magnesium 2.0. DIAGNOSIS: 1. Coumadin toxicity with high INR of 18. 2. Atrial fibrillation with rapid ventricular response. 3. Left lower lobe pneumonia. 4. History of aortic and mitral valve replacement using mechanical valves. 5. Smoking. DISPOSITION Ms. Ashford will be monitored on telemetry. We will continue rate control with diltiazem. Will eventually switch her back to diltiazem and metoprolol. We will hold warfarin, but since she has had no bleeding, I do not recommend to give her vitamin K at this time. Resume warfarin when INR is significantly decreased. I will follow her for cardiology during hospitalization. She will follow up with her support associate in [place] after discharge. MD LANE [place]/PAU /7:01 PM /7:13 PM
--- NOTE | 2017-11-28 23:49 | HHI.PR ---
Subjective Remarks "I need my breathing treatment "" Relatively stable on nasal cannula oxygen she looks very thin and frail still have cough Objective Vitals Vital Signs Date Time Temp Pulse Resp B/P (MAP) Pulse Ox O2 Delivery O2 Flow Rate FiO2 11/28/17 23:00 109 11/28/17 22:00 112 11/28/17 21:00 110 11/28/17 21:00 92 Nasal Cannula 3.00 11/28/17 20:00 116 11/28/17 19:40 97.1 101 18 109/66 (80) 95 11/28/17 19:00 117 11/28/17 18:00 116 11/28/17 17:00 120 11/28/17 16:00 117 11/28/17 15:00 98.1 109 20 106/67 (80) 96 11/28/17 15:00 103 11/28/17 14:00 117 11/28/17 13:00 118 11/28/17 12:28 98 Nasal Cannula 2.00 11/28/17 12:00 114 11/28/17 11:00 108 11/28/17 11:00 98.8 101 20 123/76 (92) 95 11/28/17 10:00 100 11/28/17 09:00 106 11/28/17 08:00 94 11/28/17 07:15 98.1 106 20 105/71 (82) 97 11/28/17 07:15 112 11/28/17 06:00 98 11/28/17 05:00 102 11/28/17 04:00 102 11/28/17 03:52 104 20 111/72 (85) 96 11/28/17 03:00 117 11/28/17 02:00 118 11/28/17 01:00 104 11/28/17 00:00 108 I/O 11/28/17 11/28/17 11/28/17 11/29/17 11/29/17 11/29/17 07:00 15:00 23:00 07:00 15:00 23:00 Intake Total 240 ml 720 ml Output Total 350 ml 600 ml Balance -110 ml 120 ml Intake Oral 240 ml 720 ml Output Urine Total 350 ml 600 ml # Bowel Movements 0 0 Result Diagram: 11/28/1765311/28/17 0654 Objective Remarks GENERAL: Frail 59 years old female who looks cachectic in no apparent distress. SKIN: No rashes, warm and dry HEAD: Atraumatic. Normocephalic. EYES: Pupils equal round and reactive. Extraocular motions intact. No scleral icterus. ENT: Nose without bleeding, or drainage, Airway patent. NECK: Trachea midline. Supple CARDIOVASCULAR: R irregularly irregular without murmurs, gallops, or rubs. RESPIRATORY: Left basilar crackles GASTROINTESTINAL: Abdomen soft, non-tender, nondistended. Positive bowel sounds MUSCULOSKELETAL: Extremities without clubbing, cyanosis, or edema. Pedal pulses appreciated NEUROLOGICAL: Awake and alert. Moves all extremity. Normal speech.no focal neurological deficit A/P Assessment and Plan 11/27: Stable change Cardizem to be po continue monitoring her breathing better, continue on IV antibiotics, tomorrow follow-up 11/28: Heart rate still above 100, however blood pressure is low systolic was 100 , cannot increase Cardizem, will try low-dose of Lopressor, will consult cardiology and order a 2D echo A/P: 72 years old female admitted with Severe Coumadin toxicity with INR of 18 Acute left lower lobe CAP, with hypoxia, cough phlegm production and increased neutrophil New onset A. 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 and monitor closely for any signs of bleeding Rocephin and Zithromax for pneumonia 02, DuoNeb Cardizem drip per protocol 2D echo, consult cardiology Healthy heart diet Bedrest with bathroom privileges for now, fall precaution Letha Haddad MD Nov 28, 2017 23:49
[2017-11-29] VITALS (29 sets, daily range): BP systolic 105–117; BP diastolic 58–70; PULSE 98–122; RESP 18–20; TEMP 98–98.2; O2SAT 94–98
[2017-11-29] MEDS: DILTIAZEM HCL 30 MG TAB PO SCH ×4 (05:49→23:49)
[2017-11-29 07:30] LABS: INTERNATIONAL NORMALIZED RATIO 2.7 RATIO
[2017-11-29] MEDS: DOCUSATE SODIUM 50 MG/SENNA 8.6 MG TAB PO SCH ×2 (08:26→21:00)
[2017-11-29] MEDS: INSULIN ASPART SUPPLEMENTAL SCALE SQ SCH ×2 (08:26→11:40)
[2017-11-29] MEDS: RESP: ALBUTEROL 2.5 MG/IPRATROPIUM 0.5 MG NEB (SCH) NEB ×4 (09:11→20:46)
--- NOTE | 2017-11-29 14:49 | PD.CARD.PN ---
Subjective Subjective Remarks No CP, c/o SOB Objective Medications Current Medications Medications (Trade) Dose Ordered Sig/Bernardo Route Start Time Stop Time Status Last Admin (NS Flush) 2 ml UNSCH PRN IVF 11/26/17 13:30 11/26/17 15:10 Diltiazem HCl 125 mg/Sodium Chloride 125 ml @ 5 mls/hr TITRATE PRN IV 11/26/17 15:30 11/27/17 12:31 (Tylenol) 650 mg Q4H PRN PO 11/26/17 16:45 (Zofran Inj) 4 mg Q6H PRN IVP 11/26/17 16:45 ([place]ster 5-325 Mg) 1 tab Q4H PRN PO 11/26/17 16:45 ([place]ster 7.5-325 Mg) 1 tab Q4H PRN PO 11/26/17 16:45 (Morphine Inj) 4 mg Q3H PRN IV PUSH 11/26/17 16:45 (Narcan Inj) 0.4 mg UNSCH PRN IV PUSH 11/26/17 16:45 (Shanda-Colace) 1 tab BID PO 11/26/17 21:00 11/28/17 08:35 (Milk Of Magnesia Liq) 30 ml Q12H PRN PO 11/26/17 16:45 Azithromycin 500 mg/Sodium Chloride 250 ml @ 250 mls/hr Q24H IV 11/27/17 16:00 11/28/17 16:00 Ceftriaxone Sodium 1000 mg/ Sodium Chloride 100 ml @ 200 mls/hr Q24H IV 11/26/17 17:00 11/28/17 17:34 (Cardizem) 30 mg Q6HR PO 11/27/17 13:00 11/29/17 11:39 (Duoneb Neb) 1 ampule QID NEB NEB 11/27/17 16:00 11/29/17 09:11 (Duoneb Neb) 1 ampule Q2HR NEB PRN NEB 11/27/17 13:00 11/29/17 13:28 (Coumadin) 4 mg DAILY@16 PO 11/29/17 16:00 Vital Signs / I&O Vital Signs Date Time Temp Pulse Resp B/P (MAP) Pulse Ox O2 Delivery O2 Flow Rate FiO2 11/29/17 12:00 98.0 106 20 106/64 (78) 97 11/29/17 09:13 94 Nasal Cannula 3.00 11/29/17 08:45 98.1 113 20 111/70 (84) 98 11/29/17 06:00 108 11/29/17 05:00 104 11/29/17 04:02 103 20 105/67 (80) 94 11/29/17 04:00 120 11/29/17 03:00 112 11/29/17 02:00 116 11/29/17 01:00 106 11/29/17 00:00 112 11/28/17 23:40 108 16 100/54 (69) 96 11/28/17 23:00 109 11/28/17 22:00 112 11/28/17 21:00 110 11/28/17 21:00 92 Nasal Cannula 3.00 11/28/17 20:00 116 11/28/17 19:40 97.1 101 18 109/66 (80) 95 18 19:00 117 18 18:00 116 18 17:00 120 11/28/17 16:00 117 11/28/17 15:00 98.1 109 20 106/67 (80) 96 11/28/17 15:00 103 I/O 11/28/1711/28/18 18 18 11/29/17 11/29/17 07:00 15:00 23:00 07:00 15:00 23:00 Intake Total 240 ml 720 ml 300 ml Output Total 350 ml 600 ml 300 ml Balance -110 ml 120 ml 0 ml Intake Oral 240 ml 720 ml 300 ml Output Urine Total 350 ml 600 ml 300 ml # Bowel Movements 0 0 1 Physical Exam GENERAL: In NAD. SKIN: Warm and dry. HEAD: Normocephalic. EYES: No scleral icterus. No injection or drainage. NECK: Supple, trachea midline. No JVD or lymphadenopathy. CARDIOVASCULAR: Irreg, without murmurs, gallops, or rubs. RESPIRATORY: Breath sounds equal bilaterally. No accessory muscle use. GASTROINTESTINAL: Abdomen soft, non-tender, nondistended. MUSCULOSKELETAL: No cyanosis, trace edema. Laboratory Laboratory Tests Test 11/29/17 05:55 Prothrombin Time 27.0 SEC Prothromb Time International Ratio 2.7 RATIO Assessment and Plan Problem List: (1) Supratherapeutic INR ICD Codes: R79.1 - Abnormal coagulation profile Status: Acute (2) Atrial fibrillation with rapid ventricular response ICD Codes: I48.91 - Unspecified atrial fibrillation Status: Acute (3) COPD exacerbation ICD Codes: J44.1 - Chronic obstructive pulmonary disease with (acute) exacerbation Status: Acute (4) Pneumonia ICD Codes: J18.9 - Pneumonia, unspecified organism Status: Acute (5) S/P MVR (mitral valve replacement) ICD Codes: Z95.2 - Presence of prosthetic heart valve (6) S/P AVR (aortic valve replacement) ICD Codes: Z95.2 - Presence of prosthetic heart valve Assessment and Plan Continue tx for pneumonia. Restart warfarin at lower dose and closely monitor INR. Increase activity, PT. F/u with her primary hospital product specialist after discharge. Problem Qualifiers (1) Pneumonia: Qualified Codes: J18.1 - Lobar pneumonia, unspecified organism Kelsy Ward MD Nov 29, 2017 14:49
[2017-11-29] MEDS: METOPROLOL SUCCINATE 25 MG EXTENDED RELEASE TAB PO SCH (15:07)
[2017-11-29] MEDS: AZITHROMYCIN INJ 500 MG in SODIUM CHLOR 0.9% 250 ML INJ 250 ML IV SCH (15:09)
[2017-11-29] MEDS: WARFARIN SOD 4 MG TAB PO SCH (16:20)
[2017-11-29] MEDS: cefTRIAXone INJ 1,000 MG in SODIUM CHLORIDE 0.9% INJ 100 ML IV SCH (17:19)
--- NOTE | 2017-11-29 22:17 | HHI.PR ---
Subjective Remarks Still having significant cough with phlegm dark green/brown O2 nasal cannula Heart rate 100 on Cardizem and low-dose Lopressor with blood pressure on the lower side Objective Vitals Vital Signs Date Time Temp Pulse Resp B/P (MAP) Pulse Ox O2 Delivery O2 Flow Rate FiO2 11/29/17 22:00 122 11/29/17 21:00 104 11/29/17 20:46 96 Nasal Cannula 3.00 11/29/17 20:00 110 11/29/17 20:00 98.2 98 18 114/58 (76) 94 11/29/17 19:00 104 11/29/17 18:00 110 11/29/17 17:00 102 11/29/17 16:00 116 11/29/17 15:24 98.1 112 19 117/69 (85) 98 11/29/17 15:00 114 11/29/17 14:00 120 11/29/17 13:00 116 11/29/17 12:00 98.0 106 20 106/64 (78) 97 11/29/17 12:00 120 11/29/17 11:00 109 11/29/17 10:00 118 11/29/17 09:13 94 Nasal Cannula 3.00 11/29/17 09:00 114 11/29/17 08:45 98.1 113 20 111/70 (84) 98 11/29/17 08:00 102 11/29/17 07:00 112 11/29/17 06:00 108 11/29/17 05:00 104 11/29/17 04:02 103 20 105/67 (80) 94 11/29/17 04:00 120 11/29/17 03:00 112 11/29/17 02:00 116 11/29/17 01:00 106 11/29/17 00:00 112 11/28/17 23:40 108 16 100/54 (69) 96 11/28/17 23:00 109 I/O 11/28/17 11/28/17 11/28/17 11/29/17 11/29/17 11/29/17 07:00 15:00 23:00 07:00 15:00 23:00 Intake Total 240 ml 720 ml 300 ml 600 ml Output Total 350 ml 600 ml 300 ml 300 ml Balance -110 ml 120 ml 0 ml 300 ml Intake Oral 240 ml 720 ml 300 ml 600 ml Output Urine Total 350 ml 600 ml 300 ml 300 ml # Bowel Movements 0 0 1 2 Result Diagram: 11/28/17 0654 11/28/17 0654 Objective Remarks GENERAL: Thin cachectic 72 years old female, in no apparent distress. CARDIOVASCULAR: Regular rate and irregular rhythm without murmurs, gallops, or rubs. RESPIRATORY: Decreased breath sounds bibasilar with crackles GASTROINTESTINAL: Abdomen soft, non-tender, nondistended. Normal, active bowel sounds MUSCULOSKELETAL: Extremities without clubbing, cyanosis, or edema. NEURO: Alert & Oriented x4 to person, place, time, situation. Moves all ext x4 A/P Assessment and Plan 11/27: Stable change Cardizem to be po continue monitoring her breathing better, continue on IV antibiotics, tomorrow follow-up 11/28: Heart rate still above 100, however blood pressure is low systolic was 100 , cannot increase Cardizem, will try low-dose of Lopressor, will consult cardiology and order a 2D echo 11/29: INR is 2.7 today, resume Coumadin and repeat INR in a.m., continue IV antibiotic with Depo-Medrol, continue monitoring heart rate and telemetry, consider adding digoxin to her regimen A/P: 72 years old female admitted with Severe Coumadin toxicity with INR of 18 Acute left lower lobe CAP, with hypoxia, cough phlegm production and increased neutrophil New onset A. 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 and monitor closely for any signs of bleeding Rocephin and Zithromax for pneumonia 02, DuoNeb Cardizem drip per protocol 2D echo, consult cardiology Healthy heart diet Bedrest with bathroom privileges for now, fall precaution Letha Haddad MD Nov 29, 2017 22:17
[2017-11-30] VITALS (24 sets, daily range): BP systolic 95–148; BP diastolic 57–86; PULSE 88–106; RESP 18–32; TEMP 96.5–99.2; O2SAT 90–98
[2017-11-30] MEDS: DILTIAZEM HCL 30 MG TAB PO SCH ×3 (06:08→17:07)
[2017-11-30 07:03] LABS: INTERNATIONAL NORMALIZED RATIO 1.8 RATIO; PROTHROMBIN TIME - PATIENT 18.1 SEC (9.8-11.6)
[2017-11-30] MEDS: RESP: ALBUTEROL 2.5 MG/IPRATROPIUM 0.5 MG NEB (SCH) NEB ×4 (07:52→19:50)
[2017-11-30] MEDS: METOPROLOL SUCCINATE 25 MG EXTENDED RELEASE TAB PO SCH (08:34)
[2017-11-30] MEDS: DOCUSATE SODIUM 50 MG/SENNA 8.6 MG TAB PO SCH ×2 (08:34→20:17)
[2017-11-30] MEDS ORDERED: COUM4TAB PO (10:08)
[2017-11-30] MEDS ORDERED: LEVA750T9 PO (10:12)
[2017-11-30] MEDS ORDERED: ENOX30P SQ (10:12)
[2017-11-30] MEDS: DIGOXIN 0.125 MG TAB PO SCH (12:11)
[2017-11-30] MEDS: ENOXAPARIN SODIUM 40 MG/0.4 ML SYRINGE SQ SCH (12:12)
[2017-11-30] MEDS: AZITHROMYCIN INJ 500 MG in SODIUM CHLOR 0.9% 250 ML INJ 250 ML IV SCH (15:48)
[2017-11-30] MEDS: WARFARIN SOD 4 MG TAB PO SCH (15:48)
[2017-11-30] MEDS: cefTRIAXone INJ 1,000 MG in SODIUM CHLORIDE 0.9% INJ 100 ML IV SCH (17:07)
--- NOTE | 2017-11-30 17:15 | PD.CARD.PN ---
Subjective Subjective Remarks No CP, c/o SOB (likely her baseline) and cough, still on O2 Objective Medications Current Medications Medications (Trade) Dose Ordered Sig/Bernardo Route Start Time Stop Time Status Last Admin (NS Flush) 2 ml UNSCH PRN IVF 11/26/17 13:30 11/26/17 15:10 Diltiazem HCl 125 mg/Sodium Chloride 125 ml @ 5 mls/hr TITRATE PRN IV 11/26/17 15:30 11/27/17 12:31 (Tylenol) 650 mg Q4H PRN PO 11/26/17 16:45 (Zofran Inj) 4 mg Q6H PRN IVP 11/26/17 16:45 (Winslow 5-325 Mg) 1 tab Q4H PRN PO 11/26/17 16:45 ([place]inslow 7.5-325 Mg) 1 tab Q4H PRN PO 11/26/17 16:45 (Morphine Inj) 4 mg Q3H PRN IV PUSH 11/26/17 16:45 (Narcan Inj) 0.4 mg UNSCH PRN IV PUSH 11/26/17 16:45 (Shanda-Colace) 1 tab BID PO 11/26/17 21:00 11/28/17 08:35 (Milk Of Magnesia Liq) 30 ml Q12H PRN PO 11/26/17 16:45 Azithromycin 500 mg/Sodium Chloride 250 ml @ 250 mls/hr Q24H IV 11/27/17 16:00 11/30/17 15:48 Ceftriaxone Sodium 1000 mg/ Sodium Chloride 100 ml @ 200 mls/hr Q24H IV 11/26/17 17:00 11/30/17 17:07 (Cardizem) 30 mg Q6HR PO 11/27/17 13:00 11/30/17 17:07 (Duoneb Neb) 1 ampule QID NEB NEB 11/27/17 16:00 11/30/17 15:01 (Duoneb Neb) 1 ampule Q2HR NEB PRN NEB 11/27/17 13:00 11/29/17 13:28 (Coumadin) 4 mg DAILY@16 PO 11/29/17 16:00 11/30/17 15:48 (Toprol Xl) 12.5 mg DAILY PO 11/29/17 14:45 11/30/17 08:34 (Lovenox Inj) 40 mg Q12H SQ 11/30/17 12:00 11/30/17 12:12 (Lanoxin) 0.125 mg DAILY PO 11/30/17 12:00 11/30/17 12:11 Vital Signs / I&O Vital Signs Date Time Temp Pulse Resp B/P (MAP) Pulse Ox O2 Delivery O2 Flow Rate FiO2 11/30/17 16:13 98.1 104 20 101/57 (72) 94 11/30/17 15:01 91 Nasal Cannula 3.00 11/30/17 13:37 103 11/30/17 12:15 98.1 102 21 110/60 (77) 93 11/30/17 12:00 106 11/30/17 11:00 98.1 103 22 110/60 (77) 93 11/30/17 11:00 104 11/30/17 11:00 104 11/30/17 10:00 100 11/30/17 09:00 98 11/30/17 09:00 98 11/30/17 08:00 92 11/30/17 08:00 92 11/30/17 07:54 96 Nasal Cannula 3.00 11/30/17 07:20 98.0 98 24 101/65 (77) 95 11/30/17 07:20 98 11/30/17 07:00 103 11/30/17 06:00 100 11/30/17 05:00 90 11/30/17 04:00 98.0 100 18 104/65 (78) 92 11/30/17 04:00 94 11/30/17 03:00 94 11/30/17 02:00 94 11/30/17 01:00 96 11/30/17 00:00 98.6 103 18 109/63 (78) 93 11/30/17 00:00 103 11/29/17 23:00 99 11/29/17 22:00 122 11/29/17 21:00 104 11/29/17 20:46 96 Nasal Cannula 3.00 11/29/17 20:00 110 11/29/17 20:00 98.2 98 18 114/58 (76) 94 11/29/17 19:00 104 11/29/17 18:00 110 I/O 11/29/17 11/29/17 11/29/17 11/30/1720/18 2/20/18 07:00 15:00 23:00 07:00 15:00 23:00 Intake Total 300 ml 600 ml 480 ml 250 ml Output Total 300 ml 300 ml 550 ml Balance 0 ml 300 ml -70 ml 250 ml Intake Oral 300 ml 600 ml 480 ml IV Total 250 ml Output Urine Total 300 ml 300 ml 550 ml # Bowel Movements 1 2 0 Physical Exam GENERAL: In NAD. SKIN: Warm and dry. HEAD: Normocephalic. EYES: No scleral icterus. No injection or drainage. NECK: Supple, trachea midline. No JVD or lymphadenopathy. CARDIOVASCULAR: Irreg, without murmurs, gallops, or rubs. RESPIRATORY: Breath sounds equal bilaterally. No accessory muscle use. GASTROINTESTINAL: Abdomen soft, non-tender, nondistended. MUSCULOSKELETAL: No cyanosis, trace edema. Laboratory Laboratory Tests Test 11/30/17 05:09 Prothrombin Time 18.1 SEC Prothromb Time International Ratio 1.8 RATIO Assessment and Plan Problem List: (1) Supratherapeutic INR ICD Codes: R79.1 - Abnormal coagulation profile Status: Acute (2) Atrial fibrillation with rapid ventricular response ICD Codes: I48.91 - Unspecified atrial fibrillation Status: Acute (3) COPD exacerbation ICD Codes: J44.1 - Chronic obstructive pulmonary disease with (acute) exacerbation Status: Acute (4) Pneumonia ICD Codes: J18.9 - Pneumonia, unspecified organism Status: Acute (5) S/P MVR (mitral valve replacement) ICD Codes: Z95.2 - Presence of prosthetic heart valve (6) S/P AVR (aortic valve replacement) ICD Codes: Z95.2 - Presence of prosthetic heart valve Assessment and Plan Continue tx for pneumonia. Continue rate control of a fib. Wean off O2 as tolerated. Continue warfarin at lower dose and closely monitor INR. Increase activity, PT. F/u with her primary special effects makeup artist in [place] after discharge. Problem Qualifiers (1) Pneumonia: Qualified Codes: J18.1 - Lobar pneumonia, unspecified organism Kelsy Ward MD Nov 30, 2017 17:15
--- NOTE | 2017-11-30 20:23 | ECHRPT ---
Indication: AFIB CONCLUSIONS The left ventricular systolic function is normal with an estimated ejection fraction in the range of 55-60%. Normally functioning mechanical mitral valve prosthesis. Mechanical aortic valve replacement noted. Probable mild AVR restenosis depending on the type and size of the valve not being known (peak 38, m ann 22, ROLO 0.6). There is mild tricuspid valve regurgitation. BP: 105 / 67 HR: 103 Rhythm: Sinus MEASUREMENTS (Male / Female) Normal Values Technical Quality:Fair 2D ECHO LV Diastolic Diameter PLAX 3.6 cm 4.2 - 5.9 / 3.9 - 5.3 cm LV Systolic Diameter PLAX 2.4 cm IVS Diastolic Thickness 1.0 cm 0.6 - 1.0 / 0.6 - 0.9 cm LVPW Diastolic Thickness 1.0 cm 0.6 - 1.0 / 0.6 - 0.9 cm LV Relative Wall Thickness 0.6 RV Internal Dim ED PLAX 2.4 cm LVOT Diameter 2.0 cm Aortic Root Diameter 2.7 cm LA Systolic Diameter LX 2.9 cm 3.0 - 4.0 / 2.7 - 3.8 cm DOPPLER AV Peak Velocity 306.8 cm/s AV Peak Gradient 37.6 mmHg AV Mean Gradient 22.5 mmHg AV Velocity Time Integral 51.9 cm LVOT Peak Velocity 52.1 cm/s LVOT Peak Gradient 1.1 mmHg LVOT Velocity Time Integral 9.2 cm AV Area Cont Eq vti 0.6 cm AV Area Cont Eq pk 0.5 cm MV Peak Velocity 182.0 cm/s MV Peak Gradient 13.2 mmHg MV Mean Velocity 98.5 cm/s MV Mean Gradient 4.8 mmHg MV Area PHT 3.6 cm Mitral E Point Velocity 158.5 cm/s LV E' Lateral Velocity 10.1 cm/s Mitral E to LV E' Lateral Ratio 15.6 LV E' Septal Velocity 8.0 cm/s Mitral E to LV E' Septal Ratio 19.8 TR Peak Velocity 307.0 cm/s TR Peak Gradient 37.7 mmHg Right Atrial Pressure 10.0 mmHg Pulmonary Artery Systolic Pressu 47.7 mmHg Right Ventricular Systolic Press 47.7 mmHg PV Peak Velocity 45.9 cm/s PV Peak Gradient 0.8 mmHg FINDINGS LEFT VENTRICLE The left ventricular systolic function is normal with an estimated ejection fraction in the range of 55-60%. Normal left ventricular size. Wall thickness is normal. No regional wall motion abnormalities are present. RIGHT VENTRICLE Normal right ventricular size and systolic function. LEFT ATRIUM The left atrial size is moderately dilated. RIGHT ATRIUM The right atrial size is moderately dilated. ATRIAL SEPTUM Normal atrial septal thickness AORTA The aortic root and proximal ascending aorta are normal in size on limited imaging. MITRAL VALVE The mitral valve is not well visualized. Normally functioning mechanical mitral valve prosthesis. No mitral valve stenosis. No mitral valve regurgitation. AORTIC VALVE The aortic valve is not well visualized. Mechanical aortic valve replacement noted Probable mild AVR restenosis depending on the type and size of the valve not being known (peak 38, m ann 22, ROLO 0.6) TRICUSPID VALVE Structurally normal tricuspid valve. There is mild tricuspid valve regurgitation. The estimated pulmonary arterial pressure is 47.7 mmHg. PULMONARY VALVE No pulmonary valve regurgitation or stenosis. VESSELS The inferior vena cava is normal in size. PERICARDIUM No pericardial effusion. Anoop Umanzor DO (Electronically Signed) Final Date:30 November 2017 20:22
--- NOTE | 2017-11-30 21:53 | HHI.PR ---
Subjective Remarks relatively look slightly better Still with low blood pressure and heart rate of 100 Discussed with cardiology will add digoxin with a Lopressor and Cardizem Objective Vitals Vital Signs Date Time Temp Pulse Resp B/P (MAP) Pulse Ox O2 Delivery O2 Flow Rate FiO2 11/30/17 20:07 99.2 93 32 105/59 (74) 93 11/30/17 20:00 93 11/30/17 19:50 92 Nasal Cannula 2.00 11/30/17 18:15 98.7 106 95/62 (73) 92 11/30/17 16:17 98 11/30/17 16:13 98.1 104 20 101/57 (72) 94 11/30/17 15:01 91 Nasal Cannula 3.00 11/30/17 13:37 103 11/30/17 12:15 98.1 102 21 110/60 (77) 93 11/30/17 12:00 106 11/30/17 11:00 98.1 103 22 110/60 (77) 93 11/30/17 11:00 104 11/30/17 11:00 104 11/30/17 10:00 100 11/30/17 09:00 98 11/30/17 09:00 98 11/30/17 08:00 92 11/30/17 08:00 92 11/30/17 07:54 96 Nasal Cannula 3.00 11/30/17 07:20 98.0 98 24 101/65 (77) 95 11/30/17 07:20 98 11/30/17 07:00 103 11/30/17 06:00 100 11/30/17 05:00 90 11/30/17 04:00 98.0 100 18 104/65 (78) 92 11/30/17 04:00 94 11/30/17 03:00 94 11/30/17 02:00 94 11/30/17 01:00 96 11/30/17 00:00 98.6 103 18 109/63 (78) 93 11/30/17 00:00 103 11/29/17 23:00 99 11/29/17 22:00 122 I/O 11/29/17 11/29/17 11/29/17 11/30/17 11/30/17 11/30/17 07:00 15:00 23:00 07:00 15:00 23:00 Intake Total 300 ml 600 ml 480 ml 250 ml Output Total 300 ml 300 ml 550 ml Balance 0 ml 300 ml -70 ml 250 ml Intake Oral 300 ml 600 ml 480 ml IV Total 250 ml Output Urine Total 300 ml 300 ml 550 ml # Bowel Movements 1 2 0 Result Diagram: 11/28/1754 11/28/17653 Objective Remarks GENERAL: This is a well-nourished, well-developed patient, in no apparent distress. CARDIOVASCULAR: Irregularly irregular rhythm without murmurs, gallops, or rubs. RESPIRATORY: Bilateral crackles with decreased breath sounds. GASTROINTESTINAL: Abdomen soft, non-tender, nondistended. Normal, active bowel sounds MUSCULOSKELETAL: Extremities without clubbing, cyanosis, or edema. NEURO: Alert & Oriented x4 to person, place, time, situation. Moves all ext x4 A/P Assessment and Plan 11/30: INR is 1.8 today we need to start bridging with Lovenox and Coumadin, paper soluMedrol, switch antibiotic to p.o., taper and wean O2 she is on 3-4 L now, discharged to rehab if her oxygen need went down to 2 A/P: 72 years old female admitted with Severe Coumadin toxicity with INR of 18 Acute left lower lobe CAP, with hypoxia, cough phlegm production and increased neutrophil New onset A. 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 and monitor closely for any signs of bleeding Rocephin and Zithromax for pneumonia 02, Bassem Donnelly drip per protocol 2D echo, consult cardiology Healthy heart diet Bedrest with bathroom privileges for now, fall precaution Discharge Planning To rehab in 1-2 days if continues to stabilize Letha Haddad MD Nov 30, 2017 21:53
[2017-12-01] VITALS: BP 103/68; PULSE 106; PULSE 113; RESP 18; TEMP 97.9; O2SAT 90
[2017-12-01] MEDS: DILTIAZEM HCL 30 MG TAB PO SCH ×3 (00:29→12:00)
[2017-12-01] MEDS: ENOXAPARIN SODIUM 40 MG/0.4 ML SYRINGE SQ SCH ×2 (00:29→12:00)
[2017-12-01 04:00] VITALS: BP 121/73; PULSE 106; PULSE 109; RESP 18; TEMP 97.8; O2SAT 90
[2017-12-01 08:00] VITALS: PULSE 101
[2017-12-01 08:01] VITALS: BP 108/72; PULSE 102; RESP 19; TEMP 97.8; O2SAT 99
[2017-12-01] MEDS: SODIUM CHLORIDE 0.9% FLUSH 10 ML FLUSH IVF PRN (08:29)
[2017-12-01] MEDS: METOPROLOL SUCCINATE 25 MG EXTENDED RELEASE TAB PO SCH (08:30)
[2017-12-01] MEDS: DOCUSATE SODIUM 50 MG/SENNA 8.6 MG TAB PO SCH (08:30)
[2017-12-01] MEDS: DIGOXIN 0.125 MG TAB PO SCH (08:31)
[2017-12-01] MEDS ORDERED: PRED5PAK PO (08:47)
--- NOTE | 2017-12-01 08:51 | HHI.DS ---
Discharge Summary Admission Date Nov 28, 2017 at 09:47 Admitting Diagnosis afib w/ rvr, supratherapeutic INR, pna (1) Pneumonia ICD Code: J18.9 - Pneumonia, unspecified organism Status: Acute (2) Supratherapeutic INR ICD Code: R79.1 - Abnormal coagulation profile Status: Acute (3) Atrial fibrillation with rapid ventricular response ICD Code: I48.91 - Unspecified atrial fibrillation Status: Acute (4) S/P AVR (aortic valve replacement) ICD Code: Z95.2 - Presence of prosthetic heart valve (5) S/P MVR (mitral valve replacement) ICD Code: Z95.2 - Presence of prosthetic heart valve Procedures None Brief History - From Admission 72 years old female with history of mild valvular prosthesis she is on Coumadin , she got a call from her cardiology office to go to ER due to high INR 18. in ED she also complaining of intense cough for a few days ago along with phlegm which is dark brown, short of breath, no fever no chest pain or discomfort, no palpitation or diarrhea, no previous antibiotic, patient smokes 5 cigarettes a day she does not do alcohol. She is not on oxygen at home. Also in ED she was found to have A. fib which seems to be new for her CBC/BMP: 11/28/17 0654 11/28/17 0654 Significant Findings Laboratory Tests Test 11/29/17 05:55 11/30/17 05:09 Prothrombin Time 27.0 SEC (9.8-11.6) 18.1 SEC (9.8-11.6) PE at Discharge GENERAL: This is a well-nourished, well-developed patient, in no apparent distress. CARDIOVASCULAR: Irregularly irregular rhythm without murmurs, gallops, or rubs. RESPIRATORY: Bilateral crackles with decreased breath sounds. GASTROINTESTINAL: Abdomen soft, non-tender, nondistended. Normal, active bowel sounds MUSCULOSKELETAL: Extremities without clubbing, cyanosis, or edema. NEURO: Alert & Oriented x4 to person, place, time, situation. Moves all ext x4 Hospital Course 72 years old female admitted with Severe Coumadin toxicity with INR of 18 Acute left lower lobe CAP, with hypoxia, cough phlegm production and increased neutrophil New onset A. 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 and monitor closely for any signs of bleeding Rocephin and Zithromax for pneumonia 02, DuoNeb Cardizem drip per protocol 2D echo, consult cardiology Healthy heart diet Bedrest with bathroom privileges for now, fall precaution Plan Over the course of treatment, INR normalized went down to 1.8 patient started on Lovenox bridging, A. fib improved with Cardizem Solu-Medrol and digoxin, cardiology consulted, 2D echo has been done, IV antibiotic DuoNeb oxygen and prednisone at discharge [id number] encounter performed with the patient on discharge day, as well as physical exam, summary of hospitalization course and postdischarge plan has been D/W the patient. D/W nurse D/W case assistant. Discharge medications reviewed and printed and signed, post discharge follow up visit with PCP and other specialist as well as Brief hospital course and discharge summary has been placed. Pt Condition on Discharge: Fair Discharge Disposition: Discharge to SNF Discharge Time: > 30 minutes Discharge Instructions DIET: Follow Instructions for: Heart Healthy Diet Activities you can perform: See Additionl Instruction Other Activity Instructions: per PT New Medications: Levofloxacin (Levaquin) 750 Mg Tablet 750 MG PO DAILY for Infection, #5 TAB 0 Refills Prednisone (21) 5 mg tab Dose Pack (Prednisone (21) 5 mg tab Dose Pack) 5 Mg Dspk 5 MG PO DIRECTED for Inflammation, #1 DSPK 0 Refills Enoxaparin Inj (Lovenox Inj) 30 Mg/0.3 Ml Syr 35 MG SQ Q12H for bridging for 5 Days, INJECTION Warfarin (Coumadin) 4 Mg Tab 5 MG PO DAILY@16 for metalic valves, #30 TAB Continued Medications: Atorvastatin (Lipitor) 20 Mg Tab 20 MG PO HS for Cholesterol Management, #30 TAB 0 Refills Diltiazem (Diltiazem) 120 Mg Tab 120 MG PO DAILY for Angina, #120 TAB 0 Refills Ferrous Sulfate (Ferosul) 325 Mg (65 Mg Iron) Tablet 0.5 TAB PO DAILY Fluticasone-Salmeterol Inh (Advair Diskus Inh) 250-50 Mcg/Blist Aer 1 PUFF INH BID, #1 INHALER 0 Refills Rinse mouth after use. Hydrocodone-Acetaminophen ([place]) 5 Mg-325 Mg Tab 1 TAB PO Q4H PRN for PAIN, TAB 0 Refills Torsemide (Torsemide) 20 Mg Tab 10 MG PO DAILY, #30 TAB 0 Refills Letha Haddad MD Dec 01, 2017 08:51
[2017-12-01] MEDS ORDERED: methylPREDNISolone SOD SUCC 40 MG/1 ML VIAL IV PUSH SCH (09:00)
[2017-12-01] MEDS: RESP: ALBUTEROL 2.5 MG/IPRATROPIUM 0.5 MG NEB (SCH) NEB (09:01)
--- NOTE | 2017-12-01 17:50 | PD.CARD.PN ---
Subjective Subjective Remarks No CP, c/o SOB and cough, improving Objective Vital Signs / I&O Vital Signs Date Time Temp Pulse Resp B/P (MAP) Pulse Ox O2 Delivery O2 Flow Rate FiO2 12/01/17 09:02 Nasal Cannula 3.00 12/01/17 08:01 97.8 102 19 108/72 (84) 99 12/01/17 08:00 101 12/01/17 08:00 Nasal Cannula 3.00 12/01/17 04:00 Nasal Cannula 3.00 12/01/17 04:00 97.8 109 18 121/73 (89) 90 12/01/17 04:00 106 12/01/17 00:00 106 12/01/17 00:00 Nasal Cannula 3.00 12/01/17 00:00 97.9 113 18 103/68 (80) 90 11/30/17 20:07 99.2 93 32 105/59 (74) 93 11/30/17 20:00 93 11/30/17 20:00 96.5 88 18 148/86 (106) 90 11/30/17 19:50 92 Nasal Cannula 2.00 11/30/17 18:15 98.7 106 95/62 (73) 92 I/O 11/30/17 11/30/17 11/30/17 12/01/17 12/01/17 12/01/17 07:00 15:00 23:00 07:00 15:00 23:00 Intake Total 480 ml 250 ml 320 ml Output Total 550 ml Balance -70 ml 250 ml 320 ml Intake Oral 480 ml 320 ml IV Total 250 ml Output Urine Total 550 ml # Voids 6 # Bowel Movements 0 2 Physical Exam GENERAL: In NAD. SKIN: Warm and dry. HEAD: Normocephalic. EYES: No scleral icterus. No injection or drainage. NECK: Supple, trachea midline. No JVD or lymphadenopathy. CARDIOVASCULAR: Irreg, without murmurs, gallops, or rubs. RESPIRATORY: Breath sounds equal bilaterally. No accessory muscle use. GASTROINTESTINAL: Abdomen soft, non-tender, nondistended. MUSCULOSKELETAL: No cyanosis, trace edema. Assessment and Plan Problem List: (1) Supratherapeutic INR ICD Codes: R79.1 - Abnormal coagulation profile Status: Acute (2) Atrial fibrillation with rapid ventricular response ICD Codes: I48.91 - Unspecified atrial fibrillation Status: Acute (3) COPD exacerbation ICD Codes: J44.1 - Chronic obstructive pulmonary disease with (acute) exacerbation Status: Acute (4) Pneumonia ICD Codes: J18.9 - Pneumonia, unspecified organism Status: Acute (5) S/P MVR (mitral valve replacement) ICD Codes: Z95.2 - Presence of prosthetic heart valve (6) S/P AVR (aortic valve replacement) ICD Codes: Z95.2 - Presence of prosthetic heart valve Assessment and Plan Continue tx for pneumonia. Continue rate control of a fib. Continue anticoagulation with warfarin at lower dose, closely monitor INR. Increase activity, PT. F/u with her primary carpet installer helper in [place] shortly after discharge. Problem Qualifiers (1) Pneumonia: Qualified Codes: J18.1 - Lobar pneumonia, unspecified organism Kelsy [place] MD Dec 01, 2017 17:50
== END 2017-12-01 12:18 | DRG 308 ==
LOC: NEPE 12:50 → NEDA 15:29 → INTOOBSV 15:29 → HCPC 22:16 → HCIS 11-27 18:55 → OBSVTOIN 11-28 09:47 → N04B 11-30 15:27
PROVIDERS: ADMIT Hospitalist; ATTEND Hospitalist
DX: I48.91 Unspecified atrial fibrillation (principal); J18.9 Pneumonia, unspecified organism; E87.3 Alkalosis; Z95.2 Presence of prosthetic heart valve; J44.0 Chronic obstructive pulmonary disease with (acute) lower respiratory infection; J44.1 Chronic obstructive pulmonary disease with (acute) exacerbation; R79.1 Abnormal coagulation profile; R09.02 Hypoxemia; I10 Essential (primary) hypertension; F17.210 Nicotine dependence, cigarettes, uncomplicated; Z79.01 Long term (current) use of anticoagulants
CPT/HCPCS: 71045; 80048; 80053; 81001; 82948; 83735; 85025; 85610; 85730; 86850; 86900; 86901; 87086; 87804; 93005; 93306; 94618; 94640; 94664; 96361; 96365; 96366; 96367; 96368; 96375; G0378; J0456; J0696; J1650; J2920; J2930; J7040; J7050